=== PATIENT | female | born 1965 ===

== ENCOUNTER 2020-11-01 | Outpatient (CLI) | payer OTHER | END 2020-11-01 13:35 | disposition home or self-care (01) | LOC: PPH VACUNA | DX: Z23 Encounter for immunization (principal) ==

== ENCOUNTER 2021-02-14 06:15 | Day surgery (SDC) | payer OTHER | END 2021-02-14 11:00 | disposition home or self-care (01) | LOC: AMB-ENDOS 06:15 | PROVIDERS: ATTEND Surgery | DX: D12.4 Benign neoplasm of descending colon (principal); K52.89 Other specified noninfective gastroenteritis and colitis; Z12.11 Encounter for screening for malignant neoplasm of colon ==

== ENCOUNTER 2021-08-09 14:25 | Outpatient (CLI) | payer OTHER | END 2021-08-09 14:35 | disposition home or self-care (01) | LOC: PPH VACUNA 14:25 | PROVIDERS: ATTEND Emergency Medicine Pediatric Emergency Medicine | DX: Z23 Encounter for immunization (principal) ==